=== PATIENT | male | born 1970 | race Caucasian/White ===

== ENCOUNTER 2018-12-18 15:31 | Emergency (ER) | payer MEDICARE ==
[2018-12-18 15:44] VITALS: TEMP 98.2
[2018-12-18] MEDS ORDERED: levETIRAcetam INJ 1,000 MG in SODIUM CHLORIDE 0.9% 100ML 100 ML IVPB ONE (15:53)
[2018-12-18] MEDS ORDERED: SODIUM CHLORIDE 0.9% 100ML 100 ML IVPB ONE (15:54)
[2018-12-18] MEDS ORDERED: levETIRAcetam INJ 100 MG/ML VIAL IVPB ONE (15:54)
--- NOTE | 2018-12-18 15:56 | ED.PDOC ---
History of Present Illness - General Chief Complaint: Neuro Symptoms/Deficits Stated Complaint: seizures Time Seen by Provider: 12/18/18 15:40 Exam Limitations: no limitations - History of Present Illness Initial Comments: HAS A HX OF SEIZURES. ON XANAX. WAS BROUGHT BY AMBULANCE AFTER HE WAS NOTED TO BE HAVING A SEIZURE ON THE SIDEWALK. THE PATIENT WAS GIVEN ONE MG OF ATIVAN IVP. THE SEIZURE WITNESSED BY EMS. Timing/Duration: 1/2 hour Worsening Factors: nothing Associated Symptoms: denies symptoms Allergies/Adverse Reactions: Allergies Sulfa Antibiotics Allergy (Verified 12/18/18 15:49) Home Medications: Ambulatory Orders Alprazolam [Xanax] 2 mg PO PRN 12/18/18 Aspirin [(None)] 325 mg PO QD 12/18/18 Carvedilol [Coreg] 6.25 mg PO BID 12/18/18 Furosemide [Lasix] 20 mg PO DAILY 12/18/18 Levetiracetam [Keppra] 500 mg PO BID #60 tab 12/18/18 Review of Systems - Review of Systems Constitutional: States: malaise, weakness EENTM: States: no symptoms reported Respiratory: States: no symptoms reported Cardiology: States: no symptoms reported Gastrointestinal/Abdominal: States: no symptoms reported Genitourinary: States: no symptoms reported Musculoskeletal: States: muscle pain Skin: States: no symptoms reported Neurological: States: seizure Endocrine: States: no symptoms reported Hematologic/Lymphatic: States: no symptoms reported Past Medical History (General) - Patient Medical History Hx Seizures: Yes Hx Stroke: Yes Hx Cardiac Disorders: Yes Hx Congestive Heart Failure: No Hx Diabetes: No - Vaccination History Hx Influenza Vaccination: Yes Hx Pneumococcal Vaccination: No - Social History Hx Tobacco Use: Yes Family Medical History - Family History Father Family History: Unknown Living Status: Unknown Physical Exam - Physical Exam General Appearance: Alert, No apparent distress, Well Developed, Well Nourished Eye Exam: bilateral normal Ears, Nose, Throat: hearing grossly normal, normal ENT inspection Neck: non-tender Respiratory: chest non-tender, lungs clear, normal breath sounds, no respiratory distress Cardiovascular/Chest: normal peripheral pulses, regular rate, rhythm, no edema, no gallop Peripheral Pulses: radial,right: 2+, radial,left: 2+ Gastrointestinal/Abdominal: normal bowel sounds, non tender, soft, no organomegaly Back Exam: normal inspection Extremity: normal range of motion, non-tender, normal inspection Neurologic: no motor/sensory deficits, alert, normal mood/affect, oriented x 3 Skin Exam: normal color Progress - Progress Progress: 12/18/18 16:31 Laboratory Results WBC 3.6 K/mm3 (4.8-10.8) L 12/18/18 15:00 RBC 4.38 M/mm3 (4.70-6.10) L 12/18/18 15:00 Hgb 12.1 gm/dL (14.0-18.0) L 12/18/18 15:00 Hct 36.8 % (42.0-52.0) L 12/18/18 15:00 MCV 84.1 fl (80.0-94.0) 12/18/18 15:00 MCH 27.6 pg (27.0-31.0) 12/18/18 15:00 MCHC 32.8 g/dL (33.0-37.0) L 12/18/18 15:00 RDW 17.1 % (11.5-14.5) H 12/18/18 15:00 Plt Count 230 K/mm3 (130-400) 12/18/18 15:00 MPV 9.2 fl (7.40-10.4) 12/18/18 15:00 Absolute Neuts (auto) 2.00 K/uL (1.8-6.8) 12/18/18 15:00 Absolute Lymphs (auto) 1.00 K/uL (1.0-3.4) 12/18/18 15:00 Absolute Monos (auto) 0.50 K/uL (0.2-0.8) 12/18/18 15:00 Absolute Eos (auto) 0.10 K/uL (0.0-0.4) 12/18/18 15:00 Absolute Basos (auto) 0.10 K/uL (0.0-0.1) 12/18/18 15:00 Neutrophils % 54.8 % (42.0-78.0) 12/18/18 15:00 Lymphocytes % 27.2 % (20.0-50.0) 12/18/18 15:00 Monocytes % 13.1 % (2.0-9.0) H 12/18/18 15:00 Eosinophils % 2.8 % (1.0-5.0) 12/18/18 15:00 Basophils % 2.1 % (0.0-2.0) H 12/18/18 15:00 Sodium 138 mmol/L (135-145) 12/18/18 15:00 Potassium 2.9 mmol/L (3.6-5.0) L 12/18/18 15:00 Chloride 104 mmol/L (101-111) 12/18/18 15:00 Carbon Dioxide 22 mmol/L (21-31) 12/18/18 15:00 Anion Gap 14.9 (12-18) 12/18/18 15:00 BUN 10 mg/dL (7-18) 12/18/18 15:00 Creatinine 0.98 mg/dL (0.6-1.3) 12/18/18 15:00 BUN/Creatinine Ratio 10.2 (10-20) 12/18/18 15:00 Random Glucose 100 mg/dL (70-105) 12/18/18 15:00 Serum Osmolality 274.8 mOsm/L (275-295) L 12/18/18 15:00 Calcium 9.1 mg/dL (8.4-10.2) 12/18/18 15:00 Total Bilirubin 0.8 mg/dL (0.2-1.0) 12/18/18 15:00 AST 19 IU/L (10-42) 12/18/18 15:00 ALT 11 IU/L (10-60) 12/18/18 15:00 Alkaline Phosphatase 71 IU/L (42-121) 12/18/18 15:00 Serum Total Protein 8.0 gm/dL (6.4-8.2) 12/18/18 15:00 Albumin 4.2 g/dl (3.2-5.5) 12/18/18 15:00 Globulin 3.8 gm/dL (2.3-3.5) H 12/18/18 15:00 Albumin/Globulin Ratio 1.1 (1.1-1.9) 12/18/18 15:00 Departure - Departure Clinical Impression: Seizure disorder Time of Disposition: 16:32 Disposition: Discharge to Home or Self Care Condition: Good Departure Forms: ED Discharge - Pt. Copy, Patient Portal Self Enrollment Prescriptions: Levetiracetam [Keppra] 500 mg PO BID #60 tab Home Medications: Ambulatory Orders Alprazolam [Xanax] 2 mg PO PRN 12/18/18 Aspirin [(None)] 325 mg PO QD 12/18/18 Carvedilol [Coreg] 6.25 mg PO BID 12/18/18 Furosemide [Lasix] 20 mg PO DAILY 12/18/18 Levetiracetam [Keppra] 500 mg PO BID #60 tab 12/18/18
[2018-12-18 17:28] VITALS: O2SAT 95
[2018-12-18 19:39] VITALS: BP 152/94
== END 2018-12-18 19:40 | disposition home or self-care (01) ==
LOC: ER 15:31
DX: G40.909 Epilepsy, unspecified, not intractable, without status epilepticus (principal); I51.9 Heart disease, unspecified; Z86.73 Personal history of transient ischemic attack (TIA), and cerebral infarction without residual deficits; Z87.891 Personal history of nicotine dependence; Z79.82 Long term (current) use of aspirin; Z79.899 Other long term (current) drug therapy; Z88.2 Allergy status to sulfonamides
CPT/HCPCS: 36415; 80053; 85025; J7050